=== PATIENT | male | born 1955 | race Caucasian/White ===

== ENCOUNTER 2024-03-09 18:59 | Emergency (ER) | payer SELFPAY ==
[~2024-03-09] VITALS: Ht 172.7 cm; Wt 68.0 kg
[2024-03-09 19:17] VITALS: O2SAT 98
[2024-03-09 21:04] LABS: TROPONIN I HIGH SENSITIVITY 9 ng/L (3.0-53)
[2024-03-09 21:18] LABS: INR 1.2; PROTHROMBIN TIME 12.9 sec (9.6-11.0)
[2024-03-09 21:23] LABS: HEMATOCRIT 37.4 % (42.0-52.0); MEAN CORPUSCULAR HEMOGLOBIN 25.6 pg (28.0-32.0); MEAN CORPUSCULAR HGB CONC 32.1 g/dL (31.0-37.0); MEAN CORPUSCULAR VOLUME 79.6 fL (80.0-94.0); PLATELET 201 x1000/uL (130-400); RED CELL DISTRIBUTION WIDTH 20.7 % (11.6-14.6); WHITE BLOOD COUNT 8.5 x1000/uL (4.5-11.0)
[2024-03-09 21:42] LABS: POTASSIUM 4.1 mEq/L (3.5-5.1)
[2024-03-09 21:44] LABS: CALCIUM 9.6 mg/dL (8.7-10.4)
[2024-03-09 21:48] LABS: CREATININE 1.2 mg/dL (0.6-1.3)
[2024-03-09 22:13] VITALS: BP 152/76; PULSE 57; RESP 16; TEMP 36.61404; O2SAT 97
== END 2024-03-09 22:40 | disposition home or self-care (01) ==
LOC: ER 18:59 → EDBEDREQ 21:28 → ER 22:40
DX: R41.82 Altered mental status, unspecified (principal); F03.90 Unspecified dementia, unspecified severity, without behavioral disturbance, psychotic disturbance, mood disturbance, and anxiety
CPT/HCPCS: 36415; 71045; 80048; 83880; 84484; 85027; 93005; 99285